=== PATIENT | male | born 1950 | race Caucasian/White ===

== ENCOUNTER 2024-05-18 18:50 | Emergency (ER) | payer MEDICARE ==
[2024-05-18] MEDS ORDERED: dilTIAZem 25 MG/5 ML VIAL ONE (20:19)
== END 2024-05-18 20:50 | disposition home or self-care (01) ==
LOC: CSHERS 18:50
DX: S00.93XA Contusion of unspecified part of head, initial encounter (principal); S80.211A Abrasion, right knee, initial encounter; S00.81XA Abrasion of other part of head, initial encounter; I48.91 Unspecified atrial fibrillation; E11.9 Type 2 diabetes mellitus without complications; I10 Essential (primary) hypertension; W22.8XXA Striking against or struck by other objects, initial encounter; Z79.01 Long term (current) use of anticoagulants; Z79.84 Long term (current) use of oral hypoglycemic drugs
CPT/HCPCS: 70450; 93005; 93010; 96374